=== PATIENT | male | born 1960 ===

== ENCOUNTER 2017-10-10 14:36 | Observation (INO) | payer OTHER ==
--- NOTE | 2017-10-10 15:39 | ED PDOC ---
Lower Extremity Pain/Injury Time Seen by Provider: 10/10/17 15:21 Chief Complaint (Nursing): Hip Pain Chief Complaint (Provider): Hip pain History Per: Patient History/Exam Limitations: no limitations Additional Complaint(s): Pt sent by Dr. Orellana for evaluation of R hip pain X 3 weeks. Pt had outpatient XR on 10/09/17 that revealed findings suspicious for stress or incomplete fx of R femoral neck. Pt denies trauma, paresthesias, weakness. Pain worse with ambulation, able to ambulate with cane. Pt recently finished radiation treatment for prostate CA. Past Medical History Reviewed: Nursing Documentation, Vital Signs Vital Signs: Last Vital Signs Temp 97.6 F 10/10/17 15:10 Pulse 71 10/10/17 15:10 Resp 20 10/10/17 15:10 BP 127/76 10/10/17 15:10 Pulse Ox 98 10/10/17 15:10 - Medical History PMH: Malignancy (Prostate) - Surgical History Surgical History: No Surg Hx - Living Arrangements Living Arrangements: With Family - Social History Current smoker - smoking cessation education provided: No Alcohol: None - Allergies Allergies/Adverse Reactions: Allergies Allergy/AdvReac Type Severity Reaction Status Date / Time No Known Allergies Allergy Verified 10/10/17 15:10 Review of Systems Constitutional: Negative for: Fever Respiratory: Negative for: Shortness of Breath Musculoskeletal: Positive for: Leg Pain Skin: Negative for: Rash, Lesions Neurological: Negative for: Weakness, Numbness, Headache Physical Exam - Reviewed Nursing Documentation Reviewed: Yes Vital Signs Reviewed: Yes - Physical Exam Appears: Positive for: Well, No Acute Distress Skin: Positive for: Normal Color, Warm, Dry Cardiovascular/Chest: Positive for: Regular Rate, Rhythm Respiratory: Positive for: Normal Breath Sounds Extremity: Positive for: Normal ROM, Tenderness (R lateral hip). Negative for: Deformity, Swelling Neurologic/Psych: Positive for: Alert, Oriented. Negative for: Motor/Sensory Deficits - ECG O2 Sat by Pulse Oximetry: 98 Medical Decision Making Medical Decision Makin yo male with possible femoral neck fracture. - MRI R hip Disposition - Disposition
[2017-10-10 19:37] LABS: BASO # 0.1 K/uL (0.0-0.2); BASO % 0.8 % (0.0-2.0); EOS # 0.4 K/uL (0.0-0.7); EOS % 5.9 % (0.0-4.0); HEMOGLOBIN 16.4 g/dL (12.0-18.0); LYMPH % 26.2 % (20.0-40.0); MEAN CELL VOLUME 96.4 fl (80.0-94.0); MEAN CORPUSCULAR HEMOGLOBIN 33.2 pg (27.0-31.0); MEAN CORPUSCULAR HGB CONC 34.4 g/dL (33.0-37.0); MEAN PLATELET VOLUME 7.7 fl (7.2-11.7); MONO # 0.7 K/uL (0.0-0.8); MONO % 9.1 % (0.0-10.0); NEUT # 4.4 K/uL (1.8-7.0); NRBC % 0.1 % (0.0-0.0); RBC 4.95 Mil/uL (4.40-5.90); RED CELL DISTRIBUTION WIDTH 13.2 % (11.5-14.5); WHITE BLOOD COUNT 7.6 K/uL (4.8-10.8)
[2017-10-10 19:56] LABS: ALB/GLOB RATIO 1.2 (1.0-2.1); ALBUMIN 4.5 g/dL (3.5-5.0); ALT/SGPT 36 U/L (21-72); AST/SGOT 53 U/L (17-59); BLOOD UREA NITROGEN 23 mg/dl (9-20); CALCIUM 8.9 mg/dL (8.4-10.2); GFR AFRICAN-AMERICAN > 60; GFR NON-AFRICAN AMERICAN > 60
[2017-10-10 20:24] LABS: PARTIAL THROMBOPLASTIN TIME 31.1 Seconds (25.6-37.1); PROTHROMBIN TIME 10.6 Seconds (9.8-13.1)
--- NOTE | 2017-10-11 08:02 | CP.PCM.CON ---
History of Present Illness - History of Present Illness History of Present Illness: Orthopedic consultation Dr. Nair 57M complains of right groin pain x approx 3 weeks. He says he works out regularly, and felt pain in his groin when he was running. He says he was still able to walk, but that pain continued. He was seen in office of PMD who ordered xrays and was found to have questionable fx and then was sent to ER for MRI to confirm. He recently completed radiation treatments for prostate CA (40+). No prior surgeries. No known bony involvement of prostate CA per patient. Bone scan 01/2017 was negative for evidence of bony metastasis. Nonsmoker No other PMH Review of Systems - Review of Systems All systems: reviewed and no additional remarkable complaints except - Musculoskeletal Musculoskeletal: As Per HPI Past Patient History - Past Medical History & Family History Past Medical History?: Yes Past Family History: Reviewed and not pertinent - Past Social History Smoking Status: Never Smoked - CARDIAC Hx Cardiac Disorders: No - MUSCULOSKELETAL/RHEUMATOLOGICAL Hx Falls: No - GENITOURINARY/GYNECOLOGICAL Hx Prostate Cancer: Yes (05/2017 radiation) - PSYCHIATRIC Hx Substance Use: No - ANESTHESIA Hx Anesthesia: No Meds Allergies/Adverse Reactions: Allergies Allergy/AdvReac Type Severity Reaction Status Date / Time No Known Allergies Allergy Verified 10/10/17 15:10 - Medications Medications: Current Medications Enoxaparin Sodium (Lovenox) 40 mg SC DAILY CATE PRN Reason: Protocol Morphine Sulfate (Morphine) 2 mg IVP Q6 PRN PRN Reason: Pain, moderate (4-7) Physical Exam - Constitutional Appears: Well, No Acute Distress - Head Exam Head Exam: ATRAUMATIC - Neck Exam Neck exam: Positive for: Full Rom, Normal Inspection - Expanded Lower Extremities Exam Right Hip exam: full ROM (Sitting on edge of bed no acute distress, right groin pain with ROM of hip, sensation itnact, skin intact, no erythema, +DP/PT pulses) Ankle exam: FULL ROM - Neurological Exam Neurological exam: Alert, Oriented x3 - Psychiatric Exam Psychiatric exam: Normal Affect, Normal Mood - Skin Skin Exam: Dry, Intact, Normal Color, Warm Results - Vital Signs Recent Vital Signs: Last Vital Signs Temp 97.6 F 10/11/17 00:34 Pulse 72 10/11/17 00:34 Resp 18 10/11/17 00:34 BP 118/75 10/11/17 00:34 Pulse Ox 96 10/11/17 00:34 - Labs Result Diagrams: 10/10/17 19:31 10/10/17 19:31 Labs: Laboratory Results - last 24 hr 10/10/17 10/10/17 10/10/17 19:31 19:31 19:31 WBC 7.6 RBC 4.95 Hgb 16.4 Hct 47.7 MCV 96.4 H MCH 33.2 H MCHC 34.4 RDW 13.2 Plt Count 260 MPV 7.7 Neut % (Auto) 58.0 Lymph % (Auto) 26.2 [place] % (Auto) 9.1 Eos % (Auto) 5.9 H Baso % (Auto) 0.8 Neut # (Auto) 4.4 Lymph # (Auto) 2.0 [place] # (Auto) 0.7 Eos # (Auto) 0.4 Baso # (Auto) 0.1 PT INR APTT Sodium 145 Potassium 3.7 Chloride 106 Carbon Dioxide 26 Anion Gap 17 BUN 23 H Creatinine 1.1 Est GFR ( Amer) > 60 Est GFR (Non-Af Amer) > 60 Random Glucose 97 Calcium 8.9 Total Bilirubin 0.8 AST 53 ALT 36 Alkaline Phosphatase 98 Total Protein 8.3 H Albumin 4.5 Globulin 3.8 Albumin/Globulin Ratio 1.2 Blood Type B POSITIVE Blood Type Confirm Antibody Screen Negative BBK History Checked No verified bt 10/10/17 10/10/17 19:31 21:30 WBC RBC Hgb Hct MCV MCH MCHC RDW Plt Count MPV Neut % (Auto) Lymph % (Auto) [place] % (Auto) Eos % (Auto) Baso % (Auto) Neut # (Auto) Lymph # (Auto) [place] # (Auto) Eos # (Auto) Baso # (Auto) PT 10.6 INR 1.0 APTT 31.1 Sodium Potassium Chloride Carbon Dioxide Anion Gap BUN Creatinine Est GFR ( Amer) Est GFR (Non-Af Amer) Random Glucose Calcium Total Bilirubin AST ALT Alkaline Phosphatase Total Protein Albumin Globulin Albumin/Globulin Ratio Blood Type Blood Type Confirm B POSITIVE Antibody Screen BBK History Checked Assessment & Plan (1) Nondisplaced fracture of neck of right femur Assessment and Plan: bone scan r/o mets d/w Dr. Nair, perioperative planning depending on results cardiology consultation pending f/u u/a, labs Status: Acute
[2017-10-11 08:21] VITALS: O2SAT 97
[2017-10-11] MEDS ORDERED: Enoxaparin 40 mg Syringe SC SCH (09:00)
--- NOTE | 2017-10-11 09:33 | CP.PCM.HP ---
History of Present Illness - History of Present Illness History of Present Illness: 57 yo gentleman presented in ER with pain in the rt hip area. He had an xray that reveled a fx. Patient has hx of prostate ca treated with radiation rx. The fracture could be pathologic in a metastatic area. Will treat the patient symptomatically, will follow with urology, and oncology if possible conservative rx . Will follow close as OP. Case discussed with orto, cardio and oncology specialists. Patient educated for close f/u. Present on Admission - Present on Admission Any Indicators Present on Admission: No Review of Systems - Constitutional Constitutional: Weakness - EENT Eyes: As Per HPI - Cardiovascular Cardiovascular: As Per HPI - Respiratory Respiratory: As Per HPI - Gastrointestinal Gastrointestinal: As Per HPI - Genitourinary Genitourinary: As Per HPI - Neurological Neurological: As Per HPI - Psychiatric Psychiatric: As Per HPI - Endocrine Endocrine: As Per HPI Past Patient History - Past Medical History & Family History Past Medical History?: Yes - Past Social History Smoking Status: Never Smoked - CARDIAC Hx Cardiac Disorders: No - MUSCULOSKELETAL/RHEUMATOLOGICAL Hx Falls: No - GENITOURINARY/GYNECOLOGICAL Hx Prostate Cancer: Yes (05/2017 radiation) - PSYCHIATRIC Hx Substance Use: No - ANESTHESIA Hx Anesthesia: No Meds Allergies/Adverse Reactions: Allergies Allergy/AdvReac Type Severity Reaction Status Date / Time No Known Allergies Allergy Verified 10/10/17 15:10 Physical Exam - Constitutional Appears: Non-toxic - Head Exam Head Exam: ATRAUMATIC, NORMAL INSPECTION, NORMOCEPHALIC - Eye Exam Eye Exam: Normal appearance - ENT Exam ENT Exam: Mucous Membranes Moist - Neck Exam Neck exam: Positive for: Normal Inspection - Respiratory Exam Respiratory Exam: Clear to Auscultation Bilateral - Cardiovascular Exam Cardiovascular Exam: REGULAR RHYTHM, +S1, +S2 - GI/Abdominal Exam GI & Abdominal Exam: Normal Bowel Sounds - Extremities Exam Extremities exam: Positive for: tenderness Additional comments: tender in the lateral aspect of the rt hip. Patient able to ambulate with the help of a cane. - Neurological Exam Neurological exam: Abnormal Gait, Alert, CN II-XII Intact, Oriented x3 - Psychiatric Exam Psychiatric exam: Normal Affect - Skin Skin Exam: Normal Color Results - Vital Signs Recent Vital Signs: Last Vital Signs Temp 97.7 F 10/11/17 08:21 Pulse 66 10/11/17 08:21 Resp 19 10/11/17 08:21 BP 130/77 10/11/17 08:21 Pulse Ox 97 10/11/17 08:21 - Labs Result Diagrams: 10/10/17 19:31 10/10/17 19:31 Labs: Laboratory Results - last 24 hr 10/10/17 10/10/17 10/10/17 19:31 19:31 19:31 WBC 7.6 RBC 4.95 Hgb 16.4 Hct 47.7 MCV 96.4 H MCH 33.2 H MCHC 34.4 RDW 13.2 Plt Count 260 MPV 7.7 Neut % (Auto) 58.0 Lymph % (Auto) 26.2 [place] % (Auto) 9.1 Eos % (Auto) 5.9 H Baso % (Auto) 0.8 Neut # (Auto) 4.4 Lymph # (Auto) 2.0 [place] # (Auto) 0.7 Eos # (Auto) 0.4 Baso # (Auto) 0.1 PT INR APTT Sodium 145 Potassium 3.7 Chloride 106 Carbon Dioxide 26 Anion Gap 17 BUN 23 H Creatinine 1.1 Est GFR ( Amer) > 60 Est GFR (Non-Af Amer) > 60 Random Glucose 97 Calcium 8.9 Total Bilirubin 0.8 AST 53 ALT 36 Alkaline Phosphatase 98 Total Protein 8.3 H Albumin 4.5 Globulin 3.8 Albumin/Globulin Ratio 1.2 Prostate Specific Ag Blood Type B POSITIVE Blood Type Confirm Antibody Screen Negative BBK History Checked No verified bt 10/10/17 10/10/17 10/11/17 19:31 21:30 07:42 WBC RBC Hgb Hct MCV MCH MCHC RDW Plt Count MPV Neut % (Auto) Lymph % (Auto) [place] % (Auto) Eos % (Auto) Baso % (Auto) Neut # (Auto) Lymph # (Auto) [place] # (Auto) Eos # (Auto) Baso # (Auto) PT 10.6 INR 1.0 APTT 31.1 Sodium Potassium Chloride Carbon Dioxide Anion Gap BUN Creatinine Est GFR ( Amer) Est GFR (Non-Af Amer) Random Glucose Calcium Total Bilirubin AST ALT Alkaline Phosphatase Total Protein Albumin Globulin Albumin/Globulin Ratio Prostate Specific Ag 6.05 H Blood Type Blood Type Confirm B POSITIVE Antibody Screen BBK History Checked Assessment & Plan (1) Pathological fracture of left hip Status: Acute (2) Prostate CA Status: Acute (3) Nondisplaced fracture of neck of right femur Status: Acute - Assessment and Plan (Free Text) Plan: As above.
--- NOTE | 2017-10-11 09:44 | RAD ---
Date of service: 10/10/2017 PROCEDURE: CHEST RADIOGRAPH, 1 VIEW HISTORY: Medical clearance COMPARISON: None available. FINDINGS: LUNGS: Linear atelectasis/ scarring left lung base. There is also minor linear scarring and small nodular density in the right CP angle that probably represents a small calcified granuloma. Followup nonemergent CT scan of the chest could be performed for further evaluation. PLEURA: No pneumothorax or pleural fluid seen. CARDIOVASCULAR: Normal. OSSEOUS STRUCTURES: No significant abnormalities. VISUALIZED UPPER ABDOMEN: Normal. OTHER FINDINGS: None. IMPRESSION: Linear atelectasis/ scarring left lung base. There is also minor linear scarring and small nodular density in the right CP angle that probably represents a small calcified granuloma. Followup nonemergent CT scan of the chest could be performed for further evaluation.
--- NOTE | 2017-10-11 10:23 | CP.PCM.CON ---
History of Present Illness - History of Present Illness History of Present Illness: This 57-year-old man is hospitalized with symptoms of right hip pain which has gradually Ewalt over last 2-3 weeks. The pain allows him to ambulate in the house but with some difficulty. The patient has undergone radiation treatment recently for carcinoma of the prostate. He denies prior history of hypertension or diabetes or smoking. There has never been effort related chest pain or myocardial infarction or congestive cardiac failure. He denies prior hospitalizations or any chronic sickness. Physical examination shows a middle aged pleasant man who is able to ambulate in the room with some pain in his right hip. His respiratory rate was 14 breaths per minute and his heart rate was 64 bpm and regular. His jugular venous pressure was not elevated and there was no edema over his lower extremity. There were varicosities over both lower extremities. His pedal pulses were well felt. There were no carotid bruits. The apex was not fixed is the first and second heart sounds are normal. There was no murmur or gallop. There were no rales. His abdomen was soft liver and spleen are not palpable. His electrocardiogram showed sinus rhythm with a right bundle branch block. An echocardiogram done today shows normal-sized left ventricle with normal regional wall motion and preserved left ventricular systolic function. There was no significant valvulopathy. His lab data was noted. Impression: Fractured femoral neck right side (? pathological) CA of the prostate. The patient is stable from cardiovascular point of view to proceed with the planned surgical fixation of the fracture under necessary anesthesia. Past Patient History - Past Medical History & Family History Past Medical History?: Yes - Past Social History Smoking Status: Never Smoked - CARDIAC Hx Cardiac Disorders: No - MUSCULOSKELETAL/RHEUMATOLOGICAL Hx Falls: No - GENITOURINARY/GYNECOLOGICAL Hx Prostate Cancer: Yes (05/2017 radiation) - PSYCHIATRIC Hx Substance Use: No - ANESTHESIA Hx Anesthesia: No Meds Allergies/Adverse Reactions: Allergies Allergy/AdvReac Type Severity Reaction Status Date / Time No Known Allergies Allergy Verified 10/10/17 15:10 - Medications Medications: Current Medications Enoxaparin Sodium (Lovenox) 40 mg SC DAILY CATE PRN Reason: Protocol Morphine Sulfate (Morphine) 2 mg IVP Q6 PRN PRN Reason: Pain, moderate (4-7) Results - Vital Signs Recent Vital Signs: Last Vital Signs Temp 97.7 F 07/12/18 08:21 Pulse 66 10/11/17 08:21 Resp 19 10/11/17 08:21 BP 130/77 10/11/17 08:21 Pulse Ox 97 10/11/17 08:21 - Labs Result Diagrams: 10/10/17 19:31 10/10/17 19:31 Labs: Laboratory Results - last 24 hr 10/10/17 10/10/17 10/10/17 19:31 19:31 19:31 WBC 7.6 RBC 4.95 Hgb 16.4 Hct 47.7 MCV 96.4 H MCH 33.2 H MCHC 34.4 RDW 13.2 Plt Count 260 MPV 7.7 Neut % (Auto) 58.0 Lymph % (Auto) 26.2 [place] % (Auto) 9.1 Eos % (Auto) 5.9 H Baso % (Auto) 0.8 Neut # (Auto) 4.4 Lymph # (Auto) 2.0 [place] # (Auto) 0.7 Eos # (Auto) 0.4 Baso # (Auto) 0.1 PT INR APTT Sodium 145 Potassium 3.7 Chloride 106 Carbon Dioxide 26 Anion Gap 17 BUN 23 H Creatinine 1.1 Est GFR ( Amer) > 60 Est GFR (Non-Af Amer) > 60 Random Glucose 97 Calcium 8.9 Total Bilirubin 0.8 AST 53 ALT 36 Alkaline Phosphatase 98 Total Protein 8.3 H Albumin 4.5 Globulin 3.8 Albumin/Globulin Ratio 1.2 Prostate Specific Ag Blood Type B POSITIVE Blood Type Confirm Antibody Screen Negative BBK History Checked No verified bt 10/10/17 10/10/17 10/11/17 19:31 21:30 07:42 WBC RBC Hgb Hct MCV MCH MCHC RDW Plt Count MPV Neut % (Auto) Lymph % (Auto) [place] % (Auto) Eos % (Auto) Baso % (Auto) Neut # (Auto) Lymph # (Auto) [place] # (Auto) Eos # (Auto) Baso # (Auto) PT 10.6 INR 1.0 APTT 31.1 Sodium Potassium Chloride Carbon Dioxide Anion Gap BUN Creatinine Est GFR ( Amer) Est GFR (Non-Af Amer) Random Glucose Calcium Total Bilirubin AST ALT Alkaline Phosphatase Total Protein Albumin Globulin Albumin/Globulin Ratio Prostate Specific Ag 6.05 H Blood Type Blood Type Confirm B POSITIVE Antibody Screen BBK History Checked
--- NOTE | 2017-10-11 11:57 | RAD ---
Date of service: 10/10/2017 PROCEDURE: Right femur HISTORY: Femur fx COMPARISON: None TECHNIQUE: Standard protocol for this study/examination. FINDINGS: No significant/acute osseous, articular or soft tissue abnormalities. IMPRESSION: No acute findings related to/accounting for the clinical presentation.
--- NOTE | 2017-10-11 11:58 | RAD ---
Date of service: 10/10/2017 PROCEDURE: Pelvis right hip HISTORY: Femur fracture COMPARISON: October 10, 2017. TECHNIQUE: Standard protocol for this study/examination. FINDINGS: There are no osseous abnormalities to suggest fracture. The pelvic ring is intact. Preserved femoral-acetabular relationship. Negative study for protrusio, subluxation or dislocation. Degenerative changes: Mild and symmetrical. IMPRESSION: No acute findings related to/accounting for the clinical presentation.
--- NOTE | 2017-10-11 12:23 | NM ---
Date of service: 10/10/2017 PROCEDURE: Whole Body Bone Scan HISTORY: r/o mets to bone COMPARISON: October 10, 2017. TECHNIQUE: Following administration of 26.2 miCu of Tc MDP multiplanar whole body images were obtained. FINDINGS: Evidence for bony metastatic disease: None. Degenerative uptake: Both lower extremities including knees and feet Physiologic uptake: Normal physiologic activity in the kidneys. Other findings: Focus of increased uptake proximal right femur adjacent to the femoral head - affecting the femoral neck. Findings are consistent with fracture. IMPRESSION: Solitary focus of increased uptake proximal right femur are consistent with fracture. No additional/suspicious abnormalities identified.
--- NOTE | 2017-10-11 13:25 | MRI ---
MRI right hip History: Hip fracture. Comparison: X-ray dated 10/10/2017 Technique: Multi-echo and multiplanar sequences were performed through the right hip without the use of intravenous contrast. Findings: Acute nondisplaced impacted fracture of the right femoral neck with associated prominent bone marrow edema and small joint effusion. Fracture line extends from the medial base of the femoral neck laterally extending to the level of the lateral cortex of the mid femoral neck. Right iliopsoas, hamstring tendon origin, and rectus femoris tendon attachments appear preserved. Moderate insertional tendinopathy of the right gluteus tendon attachments on the greater trochanter. Fraying with increased signal noted at the undersurface of the right anterior acetabular labrum concerning for a labral tear. Limited evaluation of the remainder of the bony pelvis demonstrates degenerative changes at level of the left hip and lower lumbar spine. Incidentally noted is a prominent prostate gland measuring up to 5 centimeters. Impression: Acute nondisplaced right femoral neck fracture. These findings were preliminarily reported at 6:21 p.m. on 10/10/[address] Fransisca Akbar from [facility].
[2017-10-11 14:49] LABS: URINE BILIRUBIN NEGATIVE (NEGATIVE); URINE BLOOD MODERATE (NEGATIVE); URINE CLARITY CLEAR (Clear); URINE COLOR YELLOW (YELLOW); URINE GLUCOSE (UA) NEG (Normal); URINE LEUKOCYTE ESTERASE NEG Leu/uL (Negative); URINE PROTEIN NEGATIVE (NEGATIVE); URINE UROBILINOGEN 0.2-1.0 mg/dL (0.2-1.0)
[2017-10-11 16:09] VITALS: BP 111/67; PULSE 67; RESP 18; TEMP 97.6
--- NOTE | 2017-10-11 16:33 | CARD ---
APPROVED REPORT Date of service: 10/10/2017 EKG Measurement Heart [id number] <Conclusion> Normal sinus rhythm Right bundle branch block Left anterior fascicular block Bifascicular block Abnormal ECG
== END 2017-10-11 18:10 | disposition home or self-care (01) ==
LOC: H.ER 14:36 → UNDOADMOB 18:58 → INTOOBSV 18:58 → H.ERHOLD 18:58 → H.MEDSURG1 21:05 → H.ERHOLD 21:05 → H.MEDSURG1 21:26
PROVIDERS: ADMIT Internal Medicine; ATTEND Internal Medicine
DX: S72.001A Fracture of unspecified part of neck of right femur, initial encounter for closed fracture (principal); Z92.3 Personal history of irradiation; Z85.46 Personal history of malignant neoplasm of prostate; I45.10 Unspecified right bundle-branch block; X58.XXXA Exposure to other specified factors, initial encounter
CPT/HCPCS: 36415; 71045; 73502; 73552; 73721; 78306; 80053; 81003; 82306; 84153; 85025; 85610; 85730; 86850; 86900; 93005; 93306; 99285; A9503; G0378; J1650